=== PATIENT | female | born 1995 | race Caucasian/White ===

== ENCOUNTER 2020-12-19 16:54 | Emergency (ER) | payer OTHER ==
[2020-12-19 17:11] VITALS: BP 121/77; PULSE 94; TEMP 97.6; BMI 31.3
[2020-12-19] MEDS ORDERED: LIDOCAINE HCL 1%, 10 MG/ML (50 mL VIAL) SQ ONE (18:11)
[2020-12-19] MEDS ORDERED: LIDOCAINE HCL 1%, 10 MG/ML (20ML VIAL) ONE (18:12)
[2020-12-19] MEDS ORDERED: IBUPROFEN 400 MG TABLET (FP) PO ONE ×2 (18:17→18:19)
== END 2020-12-19 20:33 | disposition home or self-care (01) ==
LOC: JERFT 16:54
DX: S62.623A Displaced fracture of middle phalanx of left middle finger, initial encounter for closed fracture (principal); S09.90XA Unspecified injury of head, initial encounter
CPT/HCPCS: 70450-TC; 73140-TC-LT-FY; 99285-25; C9803; U0003; U0005

== ENCOUNTER 2020-12-22 11:39 | Day surgery (SDC) | payer OTHER ==
[2020-12-21 14:54] VITALS: BMI 31.3
[2020-12-22] MEDS ORDERED: BUPIVACAINE HCL/PF 2.5 MG/ML - 30 ML VIAL IJ ONE (14:14)
[2020-12-22] MEDS ORDERED: LIDOCAINE HCL 1%, 10 MG/ML (20ML VIAL) ONE (14:14)
[2020-12-22] MEDS ORDERED: PROPOFOL 20 ML ONE ×4 (14:44→15:10)
[2020-12-22] MEDS ORDERED: MIDAZOLAM HCL 2 MG/2 ML SINGLE DOSE VIAL ONE ×2 (14:44)
[2020-12-22 16:53] VITALS: PULSE 67
[2020-12-22 17:11] VITALS: BP 112/66; TEMP 97.6
== END 2020-12-22 17:11 | disposition home or self-care (01) ==
LOC: FASU 11:39
PROVIDERS: ATTEND Orthopaedic Surgery Hand Surgery
PROC: 0PSV04Z Reposition Left Finger Phalanx with Internal Fixation Device, Open Approach (ICD-10-PCS; principal; 2020-12-22 15:06)
DX: S62.623A Displaced fracture of middle phalanx of left middle finger, initial encounter for closed fracture (principal); X58.XXXA Exposure to other specified factors, initial encounter; Y93.9 Activity, unspecified; Y92.9 Unspecified place or not applicable
CPT/HCPCS: 84703